=== PATIENT | male | born 1945 | race Caucasian/White ===

== ENCOUNTER 2023-03-29 11:09 | Emergency (ER) | payer OTHER ==
[~2023-03-29] VITALS: Ht 167.6 cm; Wt 99.8 kg
[2023-03-29 11:21] VITALS: BP 107/63; PULSE 69; RESP 18; TEMP 98.7; O2SAT 99
[2023-03-29] MEDS ORDERED: MORPHINE SULFATE 4 MG/ML SYR IM ONE (12:25)
[2023-03-29 13:26] VITALS: BP 107/63; PULSE 69; RESP 18; TEMP 98.7; O2SAT 99
== END 2023-03-29 13:26 | disposition home or self-care (01) ==
LOC: MED 11:09
DX: M54.50 Low back pain, unspecified (principal); Z79.899 Other long term (current) drug therapy
CPT/HCPCS: 72100; 96372; 99283; J2270